=== PATIENT | male | born 1955 | race Caucasian/White ===

== ENCOUNTER 2020-08-27 15:01 | Outpatient (CLI) | payer MEDICARE ==
[2020-08-27] VITALS (8 sets, daily range): BP systolic 130–158; BP diastolic 35–52; PULSE 91–98; TEMP 97.4
[2020-08-27] MEDS ORDERED: LIPITOR20 MG PO (15:03)
[2020-08-27] MEDS ORDERED: ASPIRIN E.C. 8181 MG PO (15:03)
[2020-08-27] MEDS ORDERED: IMURAN 50MG TAB50 MG PO (15:04)
[2020-08-27] MEDS ORDERED: PROSCAR 5MG5 MG PO (15:04)
[2020-08-27] MEDS ORDERED: CELEBREX 200MG200 MG PO (15:04)
[2020-08-27] MEDS ORDERED: COZAAR 50MG50 MG/TAB PO (15:05)
[2020-08-27] MEDS ORDERED: JANUVIA 100MG100 MG PO (15:05)
[2020-08-27] MEDS ORDERED: SINGULAIR 110 MG/TAB PO (15:05)
[2020-08-27] MEDS ORDERED: ACTOS 45MG45 MG/TAB PO (15:05)
[2020-08-27] MEDS ORDERED: DEMADEX 20MG20 M1 PO (15:06)
[2020-08-27] MEDS ORDERED: FLOMAX 0.40.4 MG/CAP PO (15:06)
[2020-08-27] MEDS ORDERED: 00186-0372-20 IH (15:06)
[2020-08-27] MEDS ORDERED: MEN'S ONE DAIL1 EACH PO (15:07)
[2020-08-27] MEDS ORDERED: TRESIBA FL200 UNIT/1 SQ (15:07)
[2020-08-27] MEDS ORDERED: VITAMIND3 5000 PO (15:07)
[2020-08-27] MEDS ORDERED: VITAMIN B125000 MCG PO (15:08)
[2020-08-27] MEDS ORDERED: UBIQUINOL100 MG PO (15:08)
[2020-08-27] MEDS ORDERED: ZYRTEC 10MG10 MG PO (15:15)
== END 2020-08-27 17:30 | disposition home or self-care (01) ==
LOC: EUO 15:01
DX: U07.1 COVID-19 (principal)
CPT/HCPCS: J7050

== ENCOUNTER 2021-05-17 09:45 | Outpatient (RCR) | payer MEDICARE ==
[~2021-05-17 09:45] MED LIST: 00186-0372-20 IH; ACTOS 45MG45 MG/TAB PO; ASPIRIN E.C. 8181 MG PO; CELEBREX 200MG200 MG PO; COZAAR 50MG50 MG/TAB PO; DEMADEX 20MG20 M1 PO; FLOMAX 0.40.4 MG/CAP PO; IMURAN 50MG TAB50 MG PO; JANUVIA 100MG100 MG PO; LIPITOR20 MG PO; MEN'S ONE DAIL1 EACH PO; PROSCAR 5MG5 MG PO; SINGULAIR 110 MG/TAB PO; TRESIBA FL200 UNIT/1 SQ; UBIQUINOL100 MG PO; VITAMIN B125000 MCG PO; VITAMIND3 5000 PO; ZYRTEC 10MG10 MG PO
== END 2021-05-24 09:26 | disposition home or self-care (01) ==
LOC: WSPT 09:45
DX: M17.0 Bilateral primary osteoarthritis of knee (principal)

== ENCOUNTER 2022-12-14 20:11 | Inpatient (IN) | payer MEDICARE ==
[2022-12-14] VITALS (66 sets, daily range): BP systolic 141; BP diastolic 84; PULSE 124; TEMP 98.6; O2SAT 84–100
[~2022-12-14] VITALS: Ht 180.3 cm; Wt 199.1 kg
[2022-12-14 20:32] LABS: BASO # 0.1 K/mm3 (0.0-0.2); BASO % 1.1 % (0.0-2.0); EOS # 0.5 K/mm3 (0.0-0.7); EOS % 8.2 % (0.0-4.0); GRAN # 3.6 K/mm3 (1.4-6.5); GRAN % 65.9 % (42.2-75.2); HEMATOCRIT 45.6 % (42.0-52.0); HEMOGLOBIN 15.4 g/dl (13.5-18.0); LYMPH # 0.6 K/mm3 (1.2-3.4); LYMPH % 11.1 % (20.0-51.0); MEAN CELL VOLUME 107 fl (80.0-100.0); MEAN CORPUSCULAR HEMOGLOBIN 36 pg (27-31); MEAN CORPUSCULAR HGB CONC 34 g/dl (33.0-37.0); MEAN PLATELET VOLUME 10.3 fl (7.4-10.4); MONO # 0.7 K/mm3 (0.1-0.6); MONO % 12.4 % (1.7-9.3); PLATELET COUNT 194 K/mm3 (130-400); RED BLOOD COUNT 4.28 M/mm3 (4.20-5.60); REDCELL DISTRIBUTION WIDTH-CV 14.8 % (11.5-14.5)
[2022-12-14 21:03] LABS: INR 1.3 (0.8-3.0); PROTHROMBIN TIME 15.2 SECONDS (9.7-12.8)
[2022-12-14 21:06] LABS: PARTIAL THROMBOPLASTIN TIME 50.7 SECONDS (26.0-37.0)
[2022-12-14 21:09] LABS: ALANINE AMINOTRANSFERASE 19 U/L (0-55); ALBUMIN 3.5 gm/dL (3.4-4.8); ALKALINE PHOSPHATASE 78 U/L (40-150); ANION GAP 12 mmol/L (7-16); AST,SGOT 28 U/L (5-34); BILIRUBIN,TOTAL 1.2 mg/dL (0.2-1.2); BLOOD UREA NITROGEN 40 mg/dL (8-26); CALCIUM 9.4 mg/dL (8.4-10.2); CARBON DIOXIDE 24 mmol/L (23-31); CHLORIDE 107 mmol/L (98-107); CREATINE KINASE 114 U/L (30-200); CREATININE, serum 1.55 mg/dL (0.72-1.25); GLUCOSE 196 mg/dL (70-99); SODIUM 143 mmol/L (136-145); TOTAL PROTEIN 7.1 gm/dL (6.2-8.1)
[2022-12-14 21:15] LABS: TROPONIN-I < 0.010 ng/mL (0.00-0.033)
[2022-12-14] MEDS ORDERED: OZEMPIC2 MG/0.75 SQ (21:44)
[2022-12-14] MEDS ORDERED: ACTOS 45MG45 MG/TAB PO (21:45)
[2022-12-14] MEDS ORDERED: FLONASE NASAL S16 GM NS (21:49)
--- NOTE | 2022-12-14 22:10 | NUR ---
Received report from ED nurse, Angelica.
--- NOTE | 2022-12-14 22:18 | NUR ---
Patient arrives to ICU room 7 via ED stretcher. Patient is alert and oriented. Upon arrival, patient is insistant he needs to use the bathroom. He refuses urinal and bedside commode when offered. Patient firmly insists he needs to use an actual toilet. Patient assisted to ICU toilet with SBA; gait was steady but HR was up to the 150s. He arrives receiving heparin and cardizem drips, see IV drip titrations. He is on room air, tolerating well. Denies any pain or discomfort. Initial HR of 124; other vitals within normal limits.
--- NOTE | 2022-12-14 22:30 | NUR ---
Initial skin assessment: patient and reported existing wound to sacral area. Upon assessment, three pea-sized stage 3 spots are noted primarily to the right side of the sacrum. One spot is scabbed over while the other two have a red wound bed. All three areas were non-draining and left JEFF. To his left groin, an abcess-like wound is present. It too is approximately pea-sized and has some sanguineous drainage. Site is surrounded by well-healed scar tissue. Patient states he has had a wound in this area for about ten years or so, but he is not sure if this is the same exact site. [facility] hospitalist, notified, who observed wound at bedside. Orders received for wound cultures. All abdominal and panus-area skin folds are slightly pink and with a yeast-like odor.
--- NOTE | 2022-12-14 23:00 | NUR ---
Patient belongings include home CPAP and a plastic bag containing a change of clothes and some replacement contacts. Patient states his wallet and cellphone were taken home by his , Myrtle. He reports having come to the hospital wearing contacts but that he has since taken them out and thrown them away. He denies wearing glasses when he does not wear contacts. Denies having dentures, partials, hearing aids, walker or cane with personal items. Jewelry includes a single gold-colored wedding band. He denies having other removable jewelry on his person.
[2022-12-15] VITALS (1247 sets, daily range): BP systolic 91–145; BP diastolic 55–86; PULSE 59–123; TEMP 97.9–98.9; O2SAT 79–100
[2022-12-15 00:25] LABS: MAGNESIUM 1.9 mg/dL (1.6-2.6)
[2022-12-15 00:45] LABS: TSH w REFLEX 1.088 uIU/mL (0.350-4.940)
[2022-12-15 01:59] LABS: MUCOUS Present (NOT PRESENT); SQUAMOUS EPITHELIAL None Seen /hpf (0-10); URINE BACTERIA None Seen /hpf (NONE SEEN)
[2022-12-15 02:00] LABS: COLLECTION METHOD CLEAN CATCH; URINE APPEARANCE Clear (CLEAR/HAZY); URINE COLOR Yellow (YELLOW); URINE GLUCOSE Negative (NEGATIVE); URINE KETONE Negative (NEGATIVE); URINE PROTEIN(semi-quant) Negative (NEGATIVE)
[2022-12-15 02:01] LABS: URINE BLOOD 2+ (NEGATIVE); URINE NITRATE Negative (NEGATIVE); URINE UROBILINOGEN 0.2 E.U/dL (0.2-1.0)
[2022-12-15 03:26] LABS: BASO % 0.6 % (0.0-2.0); EOS # 0.4 K/mm3 (0.0-0.7); EOS % 5.6 % (0.0-4.0); GRAN # 5.4 K/mm3 (1.4-6.5); GRAN % 76.1 % (42.2-75.2); HEMATOCRIT 39.3 % (42.0-52.0); HEMOGLOBIN 13.5 g/dl (13.5-18.0); LYMPH # 0.4 K/mm3 (1.2-3.4); MEAN CELL VOLUME 104 fl (80.0-100.0); MEAN CORPUSCULAR HEMOGLOBIN 36 pg (27-31); MEAN CORPUSCULAR HGB CONC 34 g/dl (33.0-37.0); MEAN PLATELET VOLUME 9.8 fl (7.4-10.4); MONO # 0.8 K/mm3 (0.1-0.6); MONO % 10.7 % (1.7-9.3); PLATELET COUNT 168 K/mm3 (130-400); RED BLOOD COUNT 3.77 M/mm3 (4.20-5.60); REDCELL DISTRIBUTION WIDTH-CV 14.7 % (11.5-14.5)
[2022-12-15 03:42] LABS: CALCIUM 9.3 mg/dL (8.4-10.2); CREATININE, serum 1.31 mg/dL (0.72-1.25); POTASSIUM 4.1 mmol/L (3.5-4.5)
[2022-12-15 03:50] LABS: TROPONIN-I 6 HR POST INITIAL 0.025 ng/mL (0.00-0.033)
--- NOTE | 2022-12-15 09:29 | NUR ---
SW met with patient to complete intake. Patient reports that he lives at home with his Myrtle ([phone]) in [place]. Patient reports to being fully independent with his ADL's and IADL's at home. At baseline he does not utilize any DME to assist with mobility but has access to a cane if needed. Patient has no day time oxygen needs, but does have a CPAP machine for night time use. He is unable to recall the name of the company the manages his supplies, however verbalizes that it is in [place]. PCP is and he utilizes [facility] for prescriptions. 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
--- NOTE | 2022-12-15 14:58 | NUR ---
LULY/CARDIOVERSION DONE AT THIS TIME BY DR. BROWN. SEDATION GIVEN BY ECTOR MOYA CRNA. PT'S HEART NOW IN SINUS RHYTHM WITH A RATE IN THE 60'S. PT SLIGHTLY HYPOTENSIVE BUT IMPROVING.
[2022-12-16] VITALS (666 sets, daily range): BP systolic 131–155; BP diastolic 51–70; PULSE 66–77; TEMP 97.7–98.3; O2SAT 62–100
--- NOTE | 2022-12-16 05:22 | NUR ---
PT ASSISTED TO TOILET. HAS BEEN ABLE TO SLEEP SOME TONIGHT. STATES IS FEELING BETTER THAN YESTERDAY, ALTHOUGH STILL SLIGHTLY WEAK. USED WALKER TO TOILET AND TOLERATED WELL. WILL CONTINUE TO MONITOR.
--- NOTE | 2022-12-16 07:45 | NUR ---
Patient awake and resting in bed; denies any concerns at this time. VS stable. Call light left within reach.
[2022-12-16] MEDS ORDERED: ELIQUIS 5MG PO (10:38)
[2022-12-16] MEDS ORDERED: CORDARONE200 MG/TAB PO (11:13)
--- NOTE | 2022-12-16 12:50 | NUR ---
Discharge packet reviewed with patient. All questions and concerns addressed at this time. Patient was escorted out to the ER via wheelchair with present.
== END 2022-12-16 12:50 | disposition home or self-care (01) | DRG 309 ==
LOC: COL.ER 20:11 → ICU 21:30
PROVIDERS: Emergency Medicine; Nurse Practitioner Family; ADMIT Internal Medicine
PROC: 5A2204Z Restoration of Cardiac Rhythm, Single (ICD-10-PCS; principal; 2022-12-15)
DX: I48.91 Unspecified atrial fibrillation (principal); N17.9 Acute kidney failure, unspecified; Z68.44 Body mass index [BMI] 60.0-69.9, adult; E78.5 Hyperlipidemia, unspecified; J45.909 Unspecified asthma, uncomplicated; G47.30 Sleep apnea, unspecified; E66.01 Morbid (severe) obesity due to excess calories; N40.0 Benign prostatic hyperplasia without lower urinary tract symptoms; G70.00 Myasthenia gravis without (acute) exacerbation; I12.9 Hypertensive chronic kidney disease with stage 1 through stage 4 chronic kidney disease, or unspecified chronic kidney disease; E11.22 Type 2 diabetes mellitus with diabetic chronic kidney disease; N18.30 Chronic kidney disease, stage 3 unspecified; H16.429 Pannus (corneal), unspecified eye; Z23 Encounter for immunization; Z88.0 Allergy status to penicillin; Z79.82 Long term (current) use of aspirin; Z79.899 Other long term (current) drug therapy
CPT/HCPCS: J1644; J2704; J7030; J7500

== ENCOUNTER 2023-10-17 13:00 | Outpatient (RCR) | payer MEDICARE ==
[~2023-10-17 13:00] MED LIST changes: +CORDARONE200 MG/TAB PO; +ELIQUIS 5MG PO; +FLONASE NASAL S16 GM NS; +OZEMPIC2 MG/0.75 SQ
== END 2023-10-18 | disposition home or self-care (01) ==
LOC: WSPT
DX: M17.0 Bilateral primary osteoarthritis of knee (principal)

== ENCOUNTER 2023-11-16 13:00 | Outpatient (RCR) | payer MEDICARE | END 2023-11-18 | disposition home or self-care (01) | LOC: WSPT | DX: M17.0 Bilateral primary osteoarthritis of knee (principal) ==

== ENCOUNTER → 2024-05-19 | Outpatient (RCR) | payer MEDICARE | LOC: WSPT | DX: M17.0 Bilateral primary osteoarthritis of knee (principal) ==

== ENCOUNTER 2024-06-16 13:30 | Outpatient (RCR) | payer MEDICARE | END 2024-06-19 | LOC: WSPT | DX: M17.0 Bilateral primary osteoarthritis of knee (principal) ==

== ENCOUNTER 2024-07-16 13:30 | Outpatient (RCR) | payer MEDICARE | END 2024-07-19 | disposition home or self-care (01) | LOC: WSPT | DX: M17.0 Bilateral primary osteoarthritis of knee (principal); M54.50 Low back pain, unspecified ==